=== PATIENT | male | born 1980 | race Caucasian/White ===

== ENCOUNTER 2022-05-09 07:00 | Inpatient (IN) | payer OTHER ==
[~2022-05-09] VITALS: Ht 188 cm; Wt 99.3 kg
[~2022-05-09 07:00] MED LIST: ALPR0.5T PO; HYDR-4072 PO; ZOLP5TAB2 PO
[2022-05-09] MEDS ORDERED: GABA-1201 PO (07:12)
[2022-05-09] MEDS ORDERED: IBUP-2070 PO (07:12)
[2022-05-09] MEDS ORDERED: BUPR-290 PO (07:12)
[2022-05-09] MEDS ORDERED: LISI-894 PO (07:12)
[2022-05-09] MEDS ORDERED: LORA10TA7 PO (07:12)
[2022-05-09] MEDS ORDERED: APIX5TAB PO (07:12)
[2022-05-09] MEDS ORDERED: VANCOMYCIN HCL 1.25 GM in DEXTROSE 5%-WATER 250 ML IV ONE (07:15)
[2022-05-09 07:59] LABS: BASOPHILS % (AUTO) 0.6 % (0.0-2.0); EOSINOPHILS % (AUTO) 2.4 % (1.0-6.0); HEMATOCRIT 41.5 % (41-53); HEMOGLOBIN 14.1 g/dL (13.5-17.5); LYMPHOCYTES # (AUTO) 1.7 K/uL (1.0-4.8); LYMPHOCYTES % (AUTO) 50.1 % (22.0-44.0); MEAN CORPUSCULAR VOLUME 91 fL (80-100); MONOCYTES # (AUTO) 0.3 K/uL (0.1-1.0); MONOCYTES % (AUTO) 9.6 % (2.0-9.0); NEUTROPHILS # (AUTO) 1.3 K/uL (1.8-7.7); NEUTROPHILS % (AUTO) 37.3 % (40.0-70.0); PLATELET COUNT (AUTO) 225 K/uL (150-450); RED BLOOD CELL COUNT(AUTO) 4.55 MIL/uL (4.50-5.90); RED CELL DISTRIBUTION WIDTH 14.1 % (11.5-14.5)
[2022-05-09 08:01] LABS: COVID AG,FIA SOURCE NASOPHARYNGEAL
[2022-05-09 08:08] LABS: ANION GAP 8 mmol/L (8-16); CALCIUM, TOTAL 9.1 mg/dL (8.8-10.5); CARBON DIOXIDE 26 mmol/L (22-29); CHLORIDE 105 mmol/L (98-107); CREATININE 0.76 mg/dL (0.60-1.30); GLOMERULAR FILTR. RATE CALC > 60 mL/min (>60); GLUCOSE,RANDOM 102 mg/dL (70-110); SODIUM SERUM 139 mmol/L (136-145); UREA NITROGEN, BLOOD 14 mg/dL (7-18)
[2022-05-09 08:15] LABS: ALANINE AMINOTRANSFERASE 45 U/L (12-78); ALBUMIN 3.6 g/dL (3.4-5.0); ALKALINE PHOSPHATASE 68 U/L (46-116); ASPARTATE AMINOTRANSFERASE 22 U/L (15-37); BILIRUBIN,TOTAL 0.5 mg/dL (0.1-1.0); TOTAL PROTEIN, SERUM 6.9 g/dL (6.4-8.2)
[2022-05-09] MEDS ORDERED: ONDANSETRON HCL 4 MG/2 ML VIAL IVP PRN ×2 (08:30→08:45)
[2022-05-09] MEDS ORDERED: ACETAMINOPHEN 325 MG TABLET PO PRN (08:30)
[2022-05-09] MEDS ORDERED: 0.9% SODIUM CHLORIDE 10 ML SYRINGE IVP PRN ×2 (08:30→08:45)
[2022-05-09] MEDS ORDERED: IPRATROPIUM BROMIDE 0.5 MG/2.5 ML NEB SOLUTION NEB PRN (08:45)
[2022-05-09] MEDS ORDERED: ALBUTEROL SULFATE 2.5 MG/0.5 ML NEB SOLUTION NEB PRN (08:45)
[2022-05-09] MEDS ORDERED: LORATADINE 10 MG TABLET PO PRN (08:45)
[2022-05-09] MEDS ORDERED: DOCUSATE SODIUM 100 MG CAPSULE PO PRN (08:45)
[2022-05-09] MEDS ORDERED: BISACODYL 10 MG RECTAL RECTAL SUPPOSITORY PR PRN (08:45)
[2022-05-09] MEDS: LISINOPRIL 20 MG TABLET PO SCH (09:00)
[2022-05-09] MEDS: APIXABAN 5 MG TABLET PO SCH ×2 (09:00→20:53)
[2022-05-09] MEDS: BuPROPion HCL 150 MG SR TABLET PO SCH ×2 (09:22→20:53)
[2022-05-09] MEDS ORDERED: CefTRIAXone 1 GM/DEXTROSE 50 ML IV SCH (10:00)
[2022-05-09 10:11] VITALS: BP 139/79
[2022-05-09] MEDS ORDERED: SODIUM CHLORIDE 0.9% 250 ML IV ONE (10:34)
[2022-05-09] MEDS: THIAMINE 100 MG TABLET PO SCH (10:43)
[2022-05-09] MEDS: FOLIC ACID 1 MG TABLET PO SCH (10:43)
[2022-05-09] MEDS: MULTIVITAMINS, THERAPEUTIC TABLET PO SCH (10:43)
[2022-05-09] MEDS: PANTOPRAZOLE SODIUM 40 MG DR TABLET PO SCH (10:43)
[2022-05-09] MEDS: GABAPENTIN 300 MG CAPSULE PO SCH ×3 (10:47→20:53)
[2022-05-09] MEDS ORDERED: CHLORHEXIDINE GLUCONATE 4% 118 ML TOPICAL LIQUID TP SCH (11:00)
[2022-05-09] MEDS: MUPIROCIN CALCIUM 2% 22 GM OINTMENT TP SCH (12:13)
[2022-05-09 15:31] VITALS: BP 154/90
[2022-05-09] MEDS ORDERED: VANCOMYCIN HCL 1.25 GM in DEXTROSE 5%-WATER 250 ML IV SCH (16:00)
[2022-05-09] MEDS ORDERED: GADOTERATE MEGLUMINE 10 MMOL/20 ML VIAL IVP ONE (16:06)
[2022-05-09 20:14] VITALS: BP 117/62
[2022-05-10 05:22] VITALS: BP 117/61
[2022-05-10 07:24] VITALS: BP 122/64
[2022-05-10] MEDS: PANTOPRAZOLE SODIUM 40 MG DR TABLET PO SCH (08:21)
[2022-05-10] MEDS: MULTIVITAMINS, THERAPEUTIC TABLET PO SCH (08:21)
[2022-05-10] MEDS: THIAMINE 100 MG TABLET PO SCH (08:21)
[2022-05-10] MEDS: FOLIC ACID 1 MG TABLET PO SCH (08:21)
[2022-05-10] MEDS: APIXABAN 5 MG TABLET PO SCH ×2 (08:21→21:20)
[2022-05-10] MEDS: GABAPENTIN 300 MG CAPSULE PO SCH (08:21)
[2022-05-10] MEDS: LISINOPRIL 20 MG TABLET PO SCH (08:21)
[2022-05-10] MEDS: MUPIROCIN CALCIUM 2% 22 GM OINTMENT TP SCH (08:22)
[2022-05-10] MEDS: BuPROPion HCL 150 MG SR TABLET PO SCH ×2 (08:33→21:20)
[2022-05-10 08:34] LABS: BASOPHILS % (AUTO) 0.9 % (0.0-2.0); EOSINOPHILS % (AUTO) 1.2 % (1.0-6.0); HEMOGLOBIN 15.2 g/dL (13.5-17.5); LYMPHOCYTES # (AUTO) 1.4 K/uL (1.0-4.8); LYMPHOCYTES % (AUTO) 36.6 % (22.0-44.0); MEAN CORPUSCULAR HEMOGLOBIN 31.4 pg (26.0-34.0); MEAN CORPUSCULAR HGB CONC 34.6 G/dL (31.0-37.0); MEAN CORPUSCULAR VOLUME 91 fL (80-100); MONOCYTES # (AUTO) 0.5 K/uL (0.1-1.0); NEUTROPHILS # (AUTO) 1.9 K/uL (1.8-7.7); NEUTROPHILS % (AUTO) 49.3 % (40.0-70.0); PLATELET COUNT (AUTO) 230 K/uL (150-450); RED BLOOD CELL COUNT(AUTO) 4.85 MIL/uL (4.50-5.90); RED CELL DISTRIBUTION WIDTH 13.8 % (11.5-14.5)
[2022-05-10 08:58] LABS: ALANINE AMINOTRANSFERASE 42 U/L (12-78); ALBUMIN 3.7 g/dL (3.4-5.0); ALKALINE PHOSPHATASE 68 U/L (46-116); ANION GAP 8 mmol/L (8-16); ASPARTATE AMINOTRANSFERASE 18 U/L (15-37); BILIRUBIN,TOTAL 0.8 mg/dL (0.1-1.0); CALCIUM, TOTAL 9.1 mg/dL (8.8-10.5); CARBON DIOXIDE 25 mmol/L (22-29); CHLORIDE 105 mmol/L (98-107); CREATININE 0.84 mg/dL (0.60-1.30); GLUCOSE,RANDOM 98 mg/dL (70-110); POTASSIUM 4.3 mmol/L (3.5-5.1); SODIUM SERUM 138 mmol/L (136-145); TOTAL PROTEIN, SERUM 7.1 g/dL (6.4-8.2); UREA NITROGEN, BLOOD 12 mg/dL (7-18)
[2022-05-10 09:00] LABS: GLOMERULAR FILTR. RATE CALC > 60 mL/min (>60)
[2022-05-10 13:31] LABS: C-REACTIVE PROTEIN QUANT 0.24 mg/dL (0.00-0.30)
[2022-05-10 15:56] VITALS: BP 132/66
[2022-05-10] MEDS: GABAPENTIN 400 MG CAPSULE PO SCH ×2 (17:03→21:20)
[2022-05-10] MEDS: VANCOMYCIN HCL 1.25 GM in DEXTROSE 5%-WATER 250 ML IV SCH ×2 (17:03→23:50)
[2022-05-10] MEDS: ACETAMINOPHEN 325 MG TABLET PO PRN ×2 (17:05→21:21)
[2022-05-10 19:35] VITALS: BP 123/64
[2022-05-11 04:10] VITALS: BP 97/60
[2022-05-11 08:27] VITALS: BP 102/58
[2022-05-11 08:45] LABS: BASOPHILS % (AUTO) 0.6 % (0.0-2.0); EOSINOPHILS % (AUTO) 1.6 % (1.0-6.0); HEMATOCRIT 45.5 % (41-53); HEMOGLOBIN 15.6 g/dL (13.5-17.5); LYMPHOCYTES # (AUTO) 1.6 K/uL (1.0-4.8); LYMPHOCYTES % (AUTO) 35.7 % (22.0-44.0); MEAN CORPUSCULAR HEMOGLOBIN 31.1 pg (26.0-34.0); MEAN CORPUSCULAR HGB CONC 34.3 G/dL (31.0-37.0); MEAN CORPUSCULAR VOLUME 91 fL (80-100); MONOCYTES # (AUTO) 0.4 K/uL (0.1-1.0); MONOCYTES % (AUTO) 8.8 % (2.0-9.0); NEUTROPHILS # (AUTO) 2.4 K/uL (1.8-7.7); NEUTROPHILS % (AUTO) 53.3 % (40.0-70.0); PLATELET COUNT (AUTO) 244 K/uL (150-450); RED BLOOD CELL COUNT(AUTO) 5.02 MIL/uL (4.50-5.90); RED CELL DISTRIBUTION WIDTH 14.2 % (11.5-14.5)
[2022-05-11] MEDS: MULTIVITAMINS, THERAPEUTIC TABLET PO SCH (08:49)
[2022-05-11] MEDS: THIAMINE 100 MG TABLET PO SCH (08:49)
[2022-05-11] MEDS: APIXABAN 5 MG TABLET PO SCH ×2 (08:49→20:11)
[2022-05-11] MEDS: BuPROPion HCL 150 MG SR TABLET PO SCH ×2 (08:49→20:10)
[2022-05-11] MEDS: PANTOPRAZOLE SODIUM 40 MG DR TABLET PO SCH (08:49)
[2022-05-11] MEDS: FOLIC ACID 1 MG TABLET PO SCH (08:49)
[2022-05-11] MEDS: GABAPENTIN 400 MG CAPSULE PO SCH ×3 (08:49→20:11)
[2022-05-11] MEDS: LISINOPRIL 20 MG TABLET PO SCH (08:49)
[2022-05-11] MEDS: VANCOMYCIN HCL 1.25 GM in DEXTROSE 5%-WATER 250 ML IV SCH ×3 (08:50→22:52)
[2022-05-11 09:00] LABS: ALANINE AMINOTRANSFERASE 46 U/L (12-78); ALBUMIN 3.8 g/dL (3.4-5.0); ALKALINE PHOSPHATASE 72 U/L (46-116); ANION GAP 12 mmol/L (8-16); ASPARTATE AMINOTRANSFERASE 15 U/L (15-37); BILIRUBIN,TOTAL 0.5 mg/dL (0.1-1.0); C-REACTIVE PROTEIN QUANT 0.13 mg/dL (0.00-0.30); CARBON DIOXIDE 26 mmol/L (22-29); CHLORIDE 102 mmol/L (98-107); GLUCOSE,RANDOM 97 mg/dL (70-110); POTASSIUM 4.2 mmol/L (3.5-5.1); SODIUM SERUM 140 mmol/L (136-145); TOTAL PROTEIN, SERUM 7.5 g/dL (6.4-8.2); UREA NITROGEN, BLOOD 14 mg/dL (7-18)
[2022-05-11 09:02] LABS: GLOMERULAR FILTR. RATE CALC > 60 mL/min (>60)
[2022-05-11] MEDS: ACETAMINOPHEN 325 MG TABLET PO PRN ×2 (14:05→18:42)
[2022-05-11] MEDS: MUPIROCIN CALCIUM 2% 22 GM OINTMENT TP SCH (14:19)
[2022-05-11] MEDS: LEVOFLOXACIN 750 MG TABLET PO SCH (16:38)
[2022-05-11 16:44] VITALS: BP 108/60
[2022-05-11 20:20] VITALS: BP 112/65
[2022-05-11] MEDS ORDERED: MORPHINE SULFATE 2 MG/ML SYRINGE IVP PRN (23:15)
[2022-05-12] MEDS: KETOROLAC TROMETHAMINE 30 MG/ML VIAL IVP PRN ×4 (00:08→21:36)
[2022-05-12 04:36] VITALS: BP 107/62
[2022-05-12 07:33] LABS: BASOPHILS % (AUTO) 0.5 % (0.0-2.0); EOSINOPHILS % (AUTO) 1.8 % (1.0-6.0); HEMATOCRIT 44.5 % (41-53); HEMOGLOBIN 15.2 g/dL (13.5-17.5); LYMPHOCYTES # (AUTO) 1.6 K/uL (1.0-4.8); LYMPHOCYTES % (AUTO) 28.1 % (22.0-44.0); MEAN CORPUSCULAR HEMOGLOBIN 30.9 pg (26.0-34.0); MEAN CORPUSCULAR HGB CONC 34.2 G/dL (31.0-37.0); MEAN CORPUSCULAR VOLUME 90 fL (80-100); MONOCYTES # (AUTO) 0.5 K/uL (0.1-1.0); MONOCYTES % (AUTO) 8.7 % (2.0-9.0); NEUTROPHILS # (AUTO) 3.4 K/uL (1.8-7.7); NEUTROPHILS % (AUTO) 60.9 % (40.0-70.0); PLATELET COUNT (AUTO) 251 K/uL (150-450); RED BLOOD CELL COUNT(AUTO) 4.93 MIL/uL (4.50-5.90)
[2022-05-12 08:01] LABS: ANION GAP 12 mmol/L (8-16); CARBON DIOXIDE 25 mmol/L (22-29); CHLORIDE 102 mmol/L (98-107); CREATININE 0.98 mg/dL (0.60-1.30); GLUCOSE,RANDOM 95 mg/dL (70-110); SODIUM SERUM 139 mmol/L (136-145); UREA NITROGEN, BLOOD 16 mg/dL (7-18); VANCOMYCIN,RANDOM 20.1 mcg/mL (25.0-50.0)
[2022-05-12 08:02] LABS: GLOMERULAR FILTR. RATE CALC > 60 mL/min (>60)
[2022-05-12 08:21] VITALS: BP 100/55
[2022-05-12] MEDS: MULTIVITAMINS, THERAPEUTIC TABLET PO SCH (08:39)
[2022-05-12] MEDS: VANCOMYCIN HCL 1.25 GM in DEXTROSE 5%-WATER 250 ML IV SCH (08:39)
[2022-05-12] MEDS: GABAPENTIN 400 MG CAPSULE PO SCH ×3 (08:39→21:36)
[2022-05-12] MEDS: APIXABAN 5 MG TABLET PO SCH ×2 (08:39→21:36)
[2022-05-12] MEDS: LEVOFLOXACIN 750 MG TABLET PO SCH (08:39)
[2022-05-12] MEDS: BuPROPion HCL 150 MG SR TABLET PO SCH ×2 (08:39→21:36)
[2022-05-12] MEDS: PANTOPRAZOLE SODIUM 40 MG DR TABLET PO SCH (08:39)
[2022-05-12] MEDS: LISINOPRIL 20 MG TABLET PO SCH (08:39)
[2022-05-12] MEDS: FOLIC ACID 1 MG TABLET PO SCH (08:39)
[2022-05-12] MEDS: THIAMINE 100 MG TABLET PO SCH (08:39)
[2022-05-12 15:33] VITALS: BP 109/62
[2022-05-12 19:26] VITALS: BP 114/59
[2022-05-12] MEDS ORDERED: VANCOMYCIN HCL 1.25 GM in DEXTROSE 5%-WATER 250 ML IV SCH (20:00)
[2022-05-13 04:23] VITALS: BP 110/68
[2022-05-13 06:54] LABS: ANION GAP 10 mmol/L (8-16); CALCIUM, TOTAL 9.4 mg/dL (8.8-10.5); CARBON DIOXIDE 26 mmol/L (22-29); CHLORIDE 103 mmol/L (98-107); CREATININE 0.91 mg/dL (0.60-1.30); GLUCOSE,RANDOM 101 mg/dL (70-110); POTASSIUM 4.2 mmol/L (3.5-5.1); SODIUM SERUM 139 mmol/L (136-145); UREA NITROGEN, BLOOD 21 mg/dL (7-18)
[2022-05-13] MEDS: KETOROLAC TROMETHAMINE 30 MG/ML VIAL IVP PRN (06:55)
[2022-05-13 07:24] LABS: GLOMERULAR FILTR. RATE CALC > 60 mL/min (>60)
[2022-05-13 08:12] VITALS: BP 124/66
[2022-05-13] MEDS: MULTIVITAMINS, THERAPEUTIC TABLET PO SCH (08:27)
[2022-05-13] MEDS: THIAMINE 100 MG TABLET PO SCH (08:27)
[2022-05-13] MEDS: GABAPENTIN 400 MG CAPSULE PO SCH ×3 (08:27→20:08)
[2022-05-13] MEDS: LISINOPRIL 20 MG TABLET PO SCH (08:27)
[2022-05-13] MEDS: FOLIC ACID 1 MG TABLET PO SCH (08:27)
[2022-05-13] MEDS: BuPROPion HCL 150 MG SR TABLET PO SCH ×2 (08:27→20:08)
[2022-05-13] MEDS: LEVOFLOXACIN 750 MG TABLET PO SCH (08:27)
[2022-05-13] MEDS: PANTOPRAZOLE SODIUM 40 MG DR TABLET PO SCH (08:27)
[2022-05-13] MEDS: APIXABAN 5 MG TABLET PO SCH ×2 (08:28→20:08)
[2022-05-13 15:15] LABS: COVID AG,FIA SOURCE NASOPHARYNGEAL
[2022-05-13 16:08] VITALS: BP 134/79
[2022-05-13] MEDS ORDERED: CHLO473L2 TP (16:35)
[2022-05-13] MEDS ORDERED: FOLI0.4T6 PO (16:35)
[2022-05-13] MEDS ORDERED: LEVO750T68 PO (16:36)
[2022-05-13] MEDS ORDERED: MULT-1077 PO (16:36)
[2022-05-13] MEDS ORDERED: PANT-31 PO (16:36)
[2022-05-13] MEDS ORDERED: THIA100T80 PO (16:37)
[2022-05-13] MEDS ORDERED: ALBUTEROL SULFATE 2.5 MG/0.5 ML NEB SOLUTION NEB PRN (17:30)
[2022-05-13] MEDS ORDERED: ALBUTEROL SULFATE 2.5 MG/0.5 ML NEB SOLUTION NEB SCH (19:00)
[2022-05-13 20:01] VITALS: BP 102/59
== END 2022-05-13 20:21 | DRG 602 ==
LOC: EMS 07:01 → 6S 08:49
PROVIDERS: ADMIT Internal Medicine; ATTEND Internal Medicine
DX: L03.115 Cellulitis of right lower limb (principal); U07.1 COVID-19; F11.23 Opioid dependence with withdrawal; L97.919 Non-pressure chronic ulcer of unspecified part of right lower leg with unspecified severity; F17.200 Nicotine dependence, unspecified, uncomplicated; G40.909 Epilepsy, unspecified, not intractable, without status epilepticus; G62.9 Polyneuropathy, unspecified; F10.20 Alcohol dependence, uncomplicated; L02.92 Furuncle, unspecified; Z79.01 Long term (current) use of anticoagulants; Z86.718 Personal history of other venous thrombosis and embolism; Z79.899 Other long term (current) drug therapy; Z91.013 Allergy to seafood
CPT/HCPCS: 73720; 80048; 80053; 80202; 84145; 85025; 86140; 87040; 87070; 87081; 87205; 93925; 99285; J0696; J1885; J3370; J7050; J7060; Q9967